=== PATIENT | female | born 1990 | race Caucasian/White ===

== ENCOUNTER 2021-05-20 19:01 | Outpatient (CLI) | payer OTHER ==
[~2021-05-20 19:01] MED LIST: COLACE 100MG C100 MG PO; NORCO 5-325 TA1 EACH PO
== END 2021-05-20 20:44 | disposition home or self-care (01) ==
LOC: GENOP 19:01
DX: O36.8130 Decreased fetal movements, third trimester, not applicable or unspecified (principal); Z3A.38 38 weeks gestation of pregnancy; O99.891 Other specified diseases and conditions complicating pregnancy; M41.9 Scoliosis, unspecified
CPT/HCPCS: 59025

== ENCOUNTER 2021-05-30 07:35 | Inpatient (IN) | payer OTHER ==
[~2021-05-30] VITALS: Ht 167.6 cm; Wt 82.6 kg
[2021-05-30] MEDS ORDERED: PRENATAL VITAM1 EAC3 PO (08:41)
[2021-05-30 08:45] LABS: HEMOGLOBIN 12.5 gm/dl (12.3-15.3); RED BLOOD COUNT 4.08 M/UL (4.00-5.10); WHITE BLOOD COUNT 9.5 K/UL (4.5-11.0)
[2021-05-30] MEDS ORDERED: DOCUSATE SODIU100 MG PO (11:28)
[2021-05-30] MEDS ORDERED: IBUPROFEN600 MG PO (11:28)
[2021-05-31 06:45] LABS: HEMOGLOBIN 11.1 gm/dl (12.3-15.3)
== END 2021-05-31 09:08 | disposition home or self-care (01) | DRG 807 ==
LOC: GENOP 07:35 → OB 08:19
PROVIDERS: ADMIT Obstetrics & Gynecology
PROC: 10E0XZZ Delivery of Products of Conception, External Approach (ICD-10-PCS; principal; 2021-05-30)
PROC: 10907ZC Drainage of Amniotic Fluid, Therapeutic from Products of Conception, Via Natural or Artificial Opening (ICD-10-PCS; 2021-05-30)
PROC: 10H07YZ Insertion of Other Device into Products of Conception, Via Natural or Artificial Opening (ICD-10-PCS; 2021-05-30)
DX: O33.0 Maternal care for disproportion due to deformity of maternal pelvic bones (principal); Z37.0 Single live birth; Z20.822 Contact with and (suspected) exposure to COVID-19; M41.9 Scoliosis, unspecified; Z3A.39 39 weeks gestation of pregnancy
CPT/HCPCS: 36415; 51702; 81001; 82800; 85014; 85018; 85025; 90471; 90715; J2590; J3010; J7120; U0002